=== PATIENT | female | born 1945 | race Caucasian/White ===

== ENCOUNTER 2017-11-29 13:29 | Emergency (ER) | payer MEDICARE, OTHER ==
[2017-11-29 15:45] VITALS: TEMP 96.7
[2017-11-29 15:51] VITALS: BP 118/71; PULSE 87; RESP 16; O2SAT 97
== END 2017-11-29 15:05 | disposition home or self-care (01) | DRG 203 ==
LOC: ED 13:29
DX: J45.901 Unspecified asthma with (acute) exacerbation (principal)
CPT/HCPCS: 99283

== ENCOUNTER 2018-10-22 07:32 | Day surgery (SDC) | payer MEDICARE, OTHER ==
[2018-10-22] MEDS ORDERED: ONDANSETRON HCL 4 MG/2 ML SOL ONE (08:30)
[2018-10-22] MEDS ORDERED: PROPOFOL 10 MG/ML 200 MG/20 ML EMU IV ONE ×2 (08:30→09:52)
[2018-10-22] MEDS ORDERED: FENTANYL 100MCG/2ML SOL ONE (08:31)
[2018-10-22] MEDS ORDERED: MIDAZOLAM 2 MG/2 ML SOL ONE (08:31)
[2018-10-22] MEDS: LIDOCAINE HCL 1% MPF 30 SOL ONE ×2 (09:44→09:52)
[2018-10-22] MEDS ORDERED: CEFAZOLIN SODIUM 1 GM PDS ONE (09:53)
[2018-10-22 10:13] VITALS: TEMP 98.1
[2018-10-22 11:01] VITALS: RESP 18
[2018-10-22 11:36] VITALS: BP 141/73; PULSE 72; O2SAT 94
== END 2018-10-22 11:22 | disposition home or self-care (01) | DRG 74 ==
LOC: SURG 07:32
PROVIDERS: ATTEND Orthopaedic Surgery
DX: G56.01 Carpal tunnel syndrome, right upper limb (principal)
CPT/HCPCS: J0690; J2250; J2405; J3010; A6402; J2001; J2704